=== PATIENT | female | born 1945 | race Caucasian/White ===

== ENCOUNTER 2016-04-06 09:02 | Inpatient (IN) | payer OTHER ==
[2016-03-31 12:39] LABS: % IMMATURE GRANULYOCYTES 0.4 % (0.0-1.1); ABSOLUTE IMMATURE GRANULOCYTES 0.02 10^3/uL (0.00-0.10); ADD DIFF? NO; ADD MORPH? NO; ADD SCAN? NO; ATYPICAL LYMPHOCYTE FLAG 10 (0-99); FRAGMENT RBC FLAG 0 (0-99); HEMATOCRIT 46.9 % (38.0-47.0); HEMOGLOBIN 15.9 g/dL (12.6-16.3); LEFT SHIFT FLG 10 (0-99); LIPEMIA HEMOLYSIS FLAG 90 (0-99); MEAN CELL HEMOGLOBIN 31.1 pg (27.9-34.1); MEAN CELL HEMOGLOBIN CONCENTR. 33.9 g/dL (32.4-36.7); MEAN CELL VOLUME 91.6 fL (81.5-99.8); MEAN PLATELET VOLUME 8.8 fL (8.7-11.7); PLATELET CLUMPS FLAG 0 (0-99); PLATELET COUNT 206 10^3/uL (150-400); RED BLOOD CELL COUNT 5.12 10^6/uL (4.18-5.33); RED CELL DISTRIBUTION WIDTH 12.3 % (11.5-15.2)
--- NOTE | 2016-03-31 13:23 | CPEKG ---
Heart Rate: 64 RR Interval: 938 P-R Interval: 188 QRSD Interval: 146 QT Interval: 440 QTC Interval: 454 P [place]: 54 QRS [place]: 52 T Wave [place]: 17 EKG Severity - ABNORMAL ECG - EKG Impression: SINUS RHYTHM EKG Impression: RIGHT BUNDLE BRANCH BLOCK Electronically Signed By: Alvin Clark 31-Mar-2016 16:13:18
--- NOTE | 2016-04-05 21:05 | GHP ---
[f rep st] PREOP HISTORY AND PHYSICAL DATE OF ADMISSION: 04/06/2016 PROBLEM: Right knee severe degenerative arthritis. HISTORY OF PRESENT ILLNESS: The patient is a 71-year-old female who will be undergoing a right tota l knee arthroplasty with Dr. Toth at the [facility]. The patient has had progress dayanara and worsening right knee pain despite conservative therapy consisting of physical therapy and co rtisone injections. She has a history of a left total knee arthroplasty from 3 years ago with a goo d result, and because of her progressive pain in the right knee, she has elected to proceed with the right total knee arthroplasty. The patient has tried and failed Celebrex. She has not tried any p revious viscosupplementation because of the advanced nature of her arthritis. PAST MEDICAL HISTORY: Pertinent for hypercholesterolemia, osteoarthritis, and anxiety. MEDICATIONS: Sertraline 25 mg and zolpidem 10 mg. ALLERGIES: Codeine which causes nausea and vomiting, and sulfonamide antibiotics. SOCIAL HISTORY: The patient is . She is a nonsmoker. Occasional alcohol intake. FAMILY HISTORY: Positive for cancer and coronary artery disease. PAST SURGICAL HISTORY: Left knee arthroscopy in 2012, right knee arthroscopy in 2006, appendectomy in 1963, and a left total knee arthroplasty in 2012. PHYSICAL EXAMINATION: GENERAL: She is a healthy-appearing 71-year-old female. VITAL SIGNS: Heigh t 5 feet 7 inches tall, weight 165 pounds. BMI 25.8. HEENT: Head is normocephalic, atraumatic. E yes are PERRLA. Conjunctivae and sclerae are clear. Mouth: She has good oral hygiene without any loose teeth. CHEST: Clear. HEART: Regular rate and rhythm without murmurs, gallops, rubs. EXTRE MITIES: Pertinent findings are limited to the patient's right knee. She has full knee extension an d 110 degrees of flexion. She has wgms-oq-nrupzlru valgus alignment. The collateral ligaments are stable to exam. DIAGNOSTIC IMAGING: Recent x-ray taken of the patient's knee shows advanced lateral compartment deg enerative arthritis of the right knee with valgus alignment. She has peripheral osteophyte formatio n and increased subchondral sclerosis. IMPRESSION: 1. Advanced right knee degenerative arthritis with valgus deformity. 2. History of anxiety disorder. 3. History of hypercholesterolemia. PLAN: Patient to undergo a right total knee arthroplasty with Dr. Toth at the [facility] on Wednesday, April 06, 2016. The surgery has been described to the patient including th e risks, benefits, and expectations. The risks include infection, blood vessel or nerve injury, per sistent knee pain or stiffness, or loosening of the prosthesis. All her questions have been answere d and she consents to surgery here in the office. /[id number]/MODL
[~2016-04-06 09:02] MED LIST: ACETAMINOPHEN 325 MG TAB PO ONE; CEFAZOLIN 2 GM/DEXTR 100 ML IV ONE; CHLORHEXIDINE GLUC HIBICLENS 118 ML BTL TP ONE; DEXAMETHASONE 4 MG/ML VIAL IVP ONE; FAMOTIDINE 20 MG TAB PO ONE; POVIDONE-IODINE 20 ML in SODIUM CL IRRIG SOLUTION 500 ML IRR ONE; ROPI/epiNEPH/KETOROLAC JOINT COCKTAIL IU ONE; TRANEXAMIC ACID 780 MG in NS 100 ML IV ONE
[2016-04-06] MEDS ORDERED: ceFAZolin 1 GM/5 ML SYR ONE (09:41)
[2016-04-06] MEDS ORDERED: DEXAMETHASONE 4 MG/ML VIAL ONE (09:56)
[2016-04-06] MEDS ORDERED: LIDOCAINE 1% 5 ML SDV ONE (09:56)
[2016-04-06] MEDS ORDERED: ACETAMINOPHEN 325 MG TAB ONE (09:56)
[2016-04-06] MEDS ORDERED: FAMOTIDINE 20 MG TAB ONE (09:56)
[2016-04-06] MEDS ORDERED: ONDANSETRON 4 MG/2 ML VIAL IVP ONE (10:00)
[2016-04-06] MEDS ORDERED: SCOPOLAMINE HYDROBROMIDE 1.5 MG PATCH TD ONE (10:00)
[2016-04-06] MEDS ORDERED: MIDAZOLAM 2 MG/2 ML VIAL ONE (11:21)
[2016-04-06] MEDS ORDERED: PROPOFOL/EMULSION 500 MG/50 ML BOTTLE IV ONE (11:24)
[2016-04-06] MEDS ORDERED: ONDANSETRON 4 MG/2 ML VIAL ONE (13:11)
--- NOTE | 2016-04-06 13:12 | POSTOPPROG ---
Post Op Note Date of Operation: 04/06/16 Surgeon: Antonio Toth Flight Radio Operator: Daniela Anesthesiologist: Mandie Anesthesia: IV Sedation, Spinal Post-op Diagnosis: R knee arthritis Procedure: R TKA Inf/Abcess present in the surg proc area at time of surgery?: No EBL: 50-100
[2016-04-06] MEDS ORDERED: PROMETHAZINE HCL 25 MG/ML INJ IVP PRN (13:27)
[2016-04-06] MEDS ORDERED: KETOROLAC 30 MG/1 ML SDV IVP PRN (13:27)
[2016-04-06] MEDS ORDERED: LACTULOSE 20 GM/30 ML UDCUP PO PRN (13:27)
[2016-04-06] MEDS ORDERED: ONDANSETRON DISINTEGRATING 4 MG TAB PO PRN (13:27)
[2016-04-06] MEDS ORDERED: METOCLOPRAMIDE 10 MG/2 ML VIAL IVP PRN (13:27)
[2016-04-06] MEDS ORDERED: POLYETHYLENE GLYCOL 3350 17 GM PKT PO PRN (13:27)
[2016-04-06] MEDS ORDERED: DIPHENOXYLATE/ATROPINE LOMOTIL 1 TAB PO PRN (13:27)
[2016-04-06] MEDS ORDERED: BISACODYL 10 MG SUPP PR PRN (13:27)
[2016-04-06] MEDS ORDERED: MAGNESIUM HYDROXIDE 30 ML UDCUP PO PRN (13:27)
[2016-04-06] MEDS ORDERED: NS 500 ML IV PRN (13:27)
[2016-04-06] MEDS ORDERED: traMADol 50 MG TAB PO PRN (13:27)
[2016-04-06] MEDS ORDERED: ONDANSETRON 4 MG/2 ML VIAL IVP PRN (13:27)
[2016-04-06] MEDS ORDERED: diphenhydrAMINE 25 MG CAP PO PRN (13:27)
[2016-04-06] MEDS ORDERED: PROMETHAZINE HCL 25 MG SUPPR PR PRN (13:27)
[2016-04-06] MEDS ORDERED: PHARMACY PAIN CONSULT 1 EA MISC PRN (13:27)
[2016-04-06] MEDS ORDERED: fentaNYL 100 MCG/2 ML INJ ONE ×2 (13:31→14:03)
--- NOTE | 2016-04-06 13:52 | GOP ---
DATE OF OPERATION: 04/06/2016 SURGEON: Antonio Toth MD NEON SIGN ERECTOR: John Paul Denise and Ambrocio Young acted as surgical assistants. Their assistance was a m edical necessity. ANESTHESIA: Combination of Marcaine spinal, IV sedation, and adductor canal block by Dr. Luis lloyd. PREOPERATIVE DIAGNOSIS: Right knee degenerative arthritis with valgus deformity. POSTOPERATIVE DIAGNOSIS: Right knee degenerative arthritis with valgus deformity. PROCEDURE PERFORMED: Right total knee arthroplasty, cemented, Al and Nephew Journey II, posterio r stabilized. FINDINGS: DESCRIPTION OF PROCEDURE: The patient was given 2 g of IV Ancef preoperatively within 60 minutes of surgery. She also received IV tranexamic acid at a dose of 10 mg/kg. She was placed on the operat ing room table and given spinal anesthesia with Marcaine by Dr. Lockwood. She was then sedated. A Rodriguez catheter was not used. She wore a DIANE stocking and SCD on the nonoperative leg. A bolste r was placed under the right hip to prevent excessive external rotation of the leg. Her right lower extremity was prepped with ChloraPrep from the upper thigh tourniquet to the tips of the toes. It was draped free using sterile sheets, stockinette, and Ioban plastic adhesive drape. Her lower leg was wrapped with compressive Coban. The leg was exsanguinated with elevation and a 6-inch compressi ve wrap, and the pneumatic tourniquet was inflated to 275 mmHg. The World Health Organization time-out was performed to verify the correct patient identity and the correct surgical side. The [place] time-out was also performed. The DeMayo leg holding device was sterilely attached to the operating room table and used throughout the procedure to help position the knee. A straight midline incision was made centered on the crews lla. Subcutaneous tissues were sharply divided and hemostasis was obtained using electrocautery. A medial subcutaneous flap was developed, and the capsule and synovium were opened in medial parapate llar fashion. Extensive degenerative changes were present in her lateral compartment and in the pat ellofemoral joint. The medial capsule and periosteum were elevated off the rim of the medial tibial plateau all the way around to the posteromedial corner. Her medial collateral ligament was lightly released to help balance the medial side of the knee. In order to improve exposure, her patella was prepared first. The original thickness of the patella was measured. Peripheral osteophytes were removed. I cut a flat surface on the back of the alpaell a. It was sized for a 35 mm resurfacing component. I removed enough bone from the patella such elva t the remaining bone plus the thickness of the patellar component recreated the original thickness o f the patella. The composite thickness was 22 mm. The intramedullary alignment guide system was used to set up the distal femoral cut. The distal fem ur was cut in 5 degrees of valgus. Because of a preoperative flexion contracture, I made a +2 mm cu t on the distal femur. The sizing jig was used to determine proper femoral sizing. She was a true size 5 without a shift. I recognized that I had used a size 4 femoral component on her opposite vernon e, however the 5 fit better on this side. The 5 in 1 cutting block was applied, and the anterior an d posterior condylar cuts and chamfer cuts were made. The final jig was used to remove the central portion of the distal femur to accommodate the posterior stabilized femoral component. I was carefu l to determine proper rotation by referencing off Whitesides line. Each cut was checked for accurac y before and after it was made. The femur was sized for a size 5 posterior stabilized component. Next the tibia was prepared. The proximal tibial cut was made using the extramedullary alignment gu tony system. The cut was made in a few degrees of posterior slope. I was careful to achieve proper varus valgus alignment and proper rotation. The posterior compartment was cleared of meniscal remna nts. Osteophytes were removed from the back of the femoral condyles. I checked the flexion and ext ension gaps, and they were equal and balanced. The tibia was sized for a size 5 component. With the trial components in place, I selected a 9 mm p olyethylene posterior stabilized tibial insert. The knee came to full extension and flexed to 130 d egrees. There was no overstuffing in flexion. Her collateral ligaments were stable and balanced in 90 degrees of flexion and full extension. The trial patellar button was applied, and patellar trac melissa was checked. Tracking was excellent without any digital pressure. Forty mL of the joint anesthetic cocktail were injected in the posterior capsule, the periarticular structures, the quadriceps muscle and tendon areas, and the subcutaneous tissues along the skin edge s. A 2nd dose of IV tranexamic acid was given at a dose of 10 mg/kg. The surfaces were prepared for cementing. They were carefully cleaned with the pulsating lavage irr igation and thoroughly dried. The CarboJet device was used to blow dry the cancellous surfaces. A double batch of methylmethacrylate cement with tobramycin was mixed. While it was still in a semili quid state, all 3 components were cemented in place. Excess cement was removed before it hardened. The 9 mm trial tibial insert was re-tried and was the proper thickness. The actual component was in serted and locked into place. The knee was thoroughly irrigated 1 final time with a dilute Betadine solution. The tourniquet was deflated. Total tourniquet time was 55 minutes. The vastus medialis portion of the extensor mechanism was repaired with several interrupted figure-o f-eight #2 FiberWire sutures. The capsule and synovium were closed first with multiple interrupted [id number]-[id number] 0 PDS sutures, followed by a running #2 barbed Ethicon Stratafix PDO suture. Subcut aneous tissues were closed with a running 0 barbed Ethicon Stratafix Monoderm suture. The skin was closed with a running 3-0 barbed Ethicon Stratafix Monoderm subcuticular suture. The skin was val d with half-inch Steri-Strips. The wound was covered with Xeroform gauze and flat 4 x 4's, and knee was wrapped with Kerlix and 6-inch compressive wrap. A long-leg DIANE stocking and SCD were applied followed by the cooling device. The patient wore a stocking and SCD on the opposite leg during the procedure. I used a size 5 cemented Oxinium Al and Nephew posterior stabilized femoral component, size 5 fiorella ented tibial base plate, a 9 mm posterior stabilized tibial insert, and a 35 mm cemented round all-p olyethylene resurfacing patellar component. The estimated blood loss following inflation of the tourniquet was about 100 cc. The sponge and needle count were correct on 2 occasions. The patient was awakened from anesthesia, transferred to her gurney and taken to PACU in satisfactor y condition. There were no recognized intraoperative complications. In the recovery room, for tito tional postoperative pain control, Dr. Gildersleeve administered an adductor canal block. /[id number]/MODL
[2016-04-06] MEDS ORDERED: ceFAZolin 2 GM/DEXTROSE 100 ML IV SCH (14:00)
[2016-04-06] MEDS: TRANEXAMIC ACID 650 MG TAB PO SCH ×2 (15:33→20:41)
[2016-04-06] MEDS: CYCLOBENZAPRINE 10 MG TAB PO PRN ×2 (15:33→23:34)
[2016-04-06] MEDS: ACETAMINOPHEN 325 MG TAB PO SCH ×2 (18:39→23:34)
[2016-04-06] MEDS: oxyCODONE IR 5 MG TAB PO PRN ×2 (18:39→23:34)
[2016-04-06] MEDS: FAMOTIDINE 20 MG TAB PO SCH (20:40)
[2016-04-06] MEDS: ceFAZolin 2 GM in D5W 100 ML IV SCH (20:41)
[2016-04-06] MEDS: ASPIRIN 325 MG TAB PO SCH (20:41)
[2016-04-06] MEDS: SENNOSIDES/DOCUSATE SODIUM TAB PO SCH (20:41)
[2016-04-06] MEDS: LR 1,000 ML IV SCH (20:51)
[2016-04-06] MEDS ORDERED: ZOLPIDEM TARTRATE 5 MG TAB PO SCH (21:00)
[2016-04-06] MEDS ORDERED: ceFAZolin 2 GM in D5W 100 ML IV SCH (22:00)
[2016-04-07] MEDS: oxyCODONE IR 5 MG TAB PO PRN ×3 (04:30→11:03)
[2016-04-07] MEDS: ACETAMINOPHEN 325 MG TAB PO SCH ×2 (04:31→12:56)
[2016-04-07] MEDS: ceFAZolin 2 GM in D5W 100 ML IV SCH (04:32)
[2016-04-07] MEDS: LR 1,000 ML IV SCH (04:32)
[2016-04-07 05:36] LABS: HEMATOCRIT 38.7 % (38.0-47.0)
--- NOTE | 2016-04-07 07:28 | SOAPPROG ---
SOAP Progress Note Assessment/Plan: Assessment: Afebrile. Awake and alert. Has been up and walking to BR. Mild knee swelling. H/H is good. Films look good. Plan: PT today. Dsg change. Std x ray. Home later today. 04/07/16 07:26 Objective: Vital Signs Temp Pulse Resp BP Pulse Ox 37.1 C 71 16 102/56 L 96 04/07/16 03:40 04/07/16 03:40 04/07/16 03:40 04/07/16 03:40 04/07/16 03:40 Laboratory Results 04/07/16 05:00 04/06/16 04/07/16 04/08/16 05:59 05:59 05:59 Intake Total 3355 Output Total 1300 Balance 2054 ICD10 Worksheet Patient Problems: Problems Problem Status Onset Localized osteoarthritis of right knee Acute Arthritis of knee, right Acute Primary osteoarthritis of left knee Acute
--- NOTE | 2016-04-07 07:30 | PDIAF ---
- Diagnosis Diagnosis: right knee arthritis Code Status: Full Code - Medication Management Discharge Medications: Medications to Continue on Transfer Calcium [HI-RAJ] 1,000 mg PO DAILY 03/28/16 [Last Taken 03/29/16] Cholecalciferol Vit D3 [Vitamin D3 (*)] 2,000 units PO DAILY 03/28/16 [Last Taken 03/29/16] Herbals/Supplements -Info Only 1 ea PO DAILY 03/28/16 [Last Taken 03/29/16] Multivitamins [Multivitamin (*)] 1 each PO DAILY 03/28/16 [Last Taken 03/29/16] Zolpidem Tartrate 5 - 10 mg PO HS 03/28/16 [Last Taken 04/05/16 22:00] Acetaminophen [Tylenol 325mg (*)] 650 mg PO Q6HRS #0 tab 04/07/16 [Last Taken Unknown] Aspirin [Aspirin 325 mg (*)] 325 mg PO DAILY #21 tab 04/07/16 [Last Taken Unknown] Ferrous Sulfate [Slow Fe 140 MG (*)] 140 mg PO DAILY #30 tab.er 04/07/16 [Last Taken Unknown] Ondansetron Odt [Zofran Odt 4 mg (*)] 4 mg PO Q4HRS PRN #0 tab 04/07/16 [Last Taken Unknown] oxyCODONE IR [Oxycodone Ir (*)] 5 - 10 mg PO Q3HRS PRN #0 tab 04/07/16 [Last Taken Unknown] traMADol [Ultram 50 mg (*)] 50 mg PO Q6HRS PRN #0 tab 04/07/16 [Last Taken Unknown] Discharge Medications: Refer to the Discharge Home Medication list for PRN reason. PICC Care - Routine: N/A - Orders Services needed: Home Care, Physical Therapy Home Care Face to Face: I certify that this patient was under my care and that I had the required [id number] encounter meeting the encounter requirements on the discharge day. My findings support the fact that the patient is homebound as defined in CMS Chapter 7 Medicare Benefits Manual 30.1.1, The condition of the patient is such that there exists a normal inability to leave home and consequently, leaving home would require a considerable and taxing effort. Diet Recommendation: no restrictions on diet Diet Texture: Regular Texture Diet Alex Stockings Discontinue Date: 1 week Wound Care Instructions: keep clean and dry. You may shower. Activity/Weight Bearing Restrictions: as tolerated. Equipment: Zero Knee Device while in bed as tolerated. - Follow Up Care Current Providers and Referrals: NONE *PRIMARY CARE P,. [Primary Care Provider] - Antonio Toth MD [Medical Doctor] - 04/22/16 11:00 am
[2016-04-07] MEDS: FAMOTIDINE 20 MG TAB PO SCH (08:39)
[2016-04-07] MEDS: TRANEXAMIC ACID 650 MG TAB PO SCH (08:41)
[2016-04-07] MEDS: ASPIRIN 325 MG TAB PO SCH (08:42)
[2016-04-07] MEDS: SENNOSIDES/DOCUSATE SODIUM TAB PO SCH (08:43)
--- NOTE | 2016-04-07 08:55 | GDS ---
ADMISSION DIAGNOSIS: Right knee severe degenerative arthritis. DISCHARGE DIAGNOSIS: Right knee severe degenerative arthritis. NAME OF PROCEDURE: Right total knee arthroplasty. POSTOPERATIVE COMPLICATIONS: None. CONDITION ON DISCHARGE: Improved. DESCRIPTION OF HOSPITAL COURSE: The patient was admitted to the hospital the morning of surgery. H er admission CBC was normal. The same day under combination of Marcaine spinal, IV sedation, and ad ductor canal block, she underwent a right total knee arthroplasty. Postoperatively, she was treated with multimodal DVT prophylaxis. On the 1st postoperative day, her hemoglobin and hematocrit were 13.0 and 38.7. She was seen by Physical Therapy and made good progr ess with ambulation and stairs. By the time of discharge, she was afebrile and was independent walk ing with a walker. DISPOSITION: The patient is discharged to her home. Continue aspirin 325 mg p.o. daily for 21 days . She will have home physical therapy. Continue DIANE stocking for 1 week. She may progress to full weightbearing as tolerated. She has prescriptions for oxycodone and tramadol. I will see her back in the office on April 22, 2016. If there any problems, she is to call me at the office. /[id number]/MODL
[2016-04-07] MEDS ORDERED: FERROUS SULFATE 140 MG TAB.ER PO SCH (09:00)
[2016-04-07] MEDS ORDERED: NON-FORMULARY NEW DRUG (Calcium [Hi-Cal] 1,000 MG) PO SCH (09:00)
[2016-04-07] MEDS ORDERED: CHOLECALCIFEROL VIT D3 1,000 UNITS TAB PO SCH (09:00)
[2016-04-07] MEDS ORDERED: Herbals/Supplements -Info Only PO SCH (09:00)
[2016-04-07] MEDS ORDERED: MULTIVITAMINS 1 EACH TAB PO SCH (09:00)
[2016-04-07] MEDS ORDERED: CALCIUM CARBONATE 500 MG TAB PO SCH (09:00)
[2016-04-07 09:25] VITALS: RESP 14; TEMP 98.1
[2016-04-07 11:57] VITALS: BP 110/62; PULSE 60; O2SAT 96
== END 2016-04-07 13:55 | disposition home health service (06) | DRG 470 ==
LOC: F3N 09:02
PROVIDERS: ADMIT Orthopaedic Surgery; ATTEND Orthopaedic Surgery
PROC: 0SRC0J9 Replacement of Right Knee Joint with Synthetic Substitute, Cemented, Open Approach (ICD-10-PCS; principal; 2016-04-06 10:30)
DX: M17.11 Unilateral primary osteoarthritis, right knee (principal); Z96.652 Presence of left artificial knee joint; E78.00 Pure hypercholesterolemia, unspecified; F41.9 Anxiety disorder, unspecified; K44.9 Diaphragmatic hernia without obstruction or gangrene; Z80.9 Family history of malignant neoplasm, unspecified; Z82.49 Family history of ischemic heart disease and other diseases of the circulatory system
CPT/HCPCS: 97116-GP; 97161-GP; 97165-GO; 97530-GP; C1713; G8978-GP-CK; G8979-GP-CI; G8980-GP-CI; G8987-GO-CJ; G8988-GO-CJ; G8989-GO-CJ; J0171; J0690; J1100; J1885; J2250; J2405; J2704; J2795; J3010